=== PATIENT | female | born 1955 | race Caucasian/White ===

== ENCOUNTER → 2016-12-16 | Outpatient (CLI) | payer MEDICARE ==
[~2016-12-16] MED LIST: ALPR1TAB2 PO; ASPI-496 PO; CITA20TA5 PO; RIVA20TA PO
== END | disposition home or self-care (01) ==
LOC: CFH 08:00
PROVIDERS: ATTEND Family Medicine
DX: R91.1 Solitary pulmonary nodule (principal)
CPT/HCPCS: 71250

== ENCOUNTER → 2017-03-08 | Outpatient (CLI) | payer MEDICARE | END | disposition home or self-care (01) | LOC: CFH 13:46 | PROVIDERS: ATTEND Internal Medicine | DX: R91.1 Solitary pulmonary nodule (principal); J43.9 Emphysema, unspecified | CPT/HCPCS: 71250 ==

== ENCOUNTER 2017-06-30 13:03 | Inpatient (IN) | payer MEDICARE ==
[~2017-06-30] VITALS: Ht 165.1 cm; Wt 70.7 kg
[2017-06-30] MEDS ORDERED: methylPREDNISolone SOD SUCC 125 MG/2 ML ONE (13:21)
[2017-06-30] MEDS ORDERED: methylPREDNISolone SOD SUCC 125 MG/2 ML IVP ONE (13:30)
[2017-06-30] MEDS ORDERED: SODIUM CHLORIDE FLUSH 10ML SYR IVF ONE (13:30)
[2017-06-30] MEDS ORDERED: ALBUTEROL/IPRATROPIUM 2.5MG/0.5MG, 3 ML NPPB ONE ×2 (13:30→15:00)
[2017-06-30] MEDS ORDERED: GABA-827 PO (13:38)
[2017-06-30] MEDS ORDERED: ESTR0.6246 PO (13:38)
[2017-06-30] MEDS ORDERED: PRED-165 PO (13:40)
[2017-06-30] MEDS ORDERED: HYDR-3237 PO (13:40)
[2017-06-30] MEDS ORDERED: CEPHALEXIN 500 MG CAPSULE ONE (13:49)
[2017-06-30] MEDS ORDERED: SULFAMETH./TRIMETHOPRIM DS 800MG/160MG TABLET ONE (13:49)
[2017-06-30 13:52] LABS: HEMATOCRIT 47.9 % (34.6-47.8); HEMOGLOBIN 16.2 g/dL (11.7-16.4); WHITE BLOOD COUNT 6.8 x10^3/uL (3.4-10)
[2017-06-30 13:56] LABS: BLOOD UREA NITROGEN 5 mg/dL (7-18)
[2017-06-30 14:02] LABS: ASPARTATE AMINO TRANSFERASE 102 U/L (15-37); IS PT STATUS REG ER OR PRE ER? YES
[2017-06-30] MEDS ORDERED: ALBUTEROL/IPRATROPIUM 2.5MG/0.5MG, 3 ML ONE ×2 (14:15→15:05)
[2017-06-30] MEDS ORDERED: SODIUM CHLORIDE FLUSH 10ML SYR IVF PRN (16:30)
[2017-06-30] MEDS ORDERED: MAGNESIUM SULFATE PMX 2GM/50ML 50 ML IV ONE (16:30)
[2017-06-30] MEDS ORDERED: GUAIFENESIN/DM 200-20MG, 10ML UDC PO PRN (17:00)
[2017-06-30] MEDS ORDERED: ALPRazolam 1MG TABLET PO ONE (17:00)
[2017-06-30] MEDS ORDERED: DOCUSATE 100 MG CAPSULE PO PRN (17:00)
[2017-06-30] MEDS ORDERED: hydrALAzine 20 MG/ML, 1ML IVPush PRN (17:00)
[2017-06-30] MEDS ORDERED: ONDANSETRON 2MG/ML, 2ML IVPush PRN (17:00)
[2017-06-30] MEDS ORDERED: POLYETHYLENE GLYCOL 17 GM PACKET PO PRN (17:00)
[2017-06-30] MEDS ORDERED: BISACODYL 10 MG SUPP PR PRN (17:00)
[2017-06-30] MEDS ORDERED: ONDANSETRON ODT 4 MG PO PRN (17:00)
[2017-06-30] MEDS ORDERED: ZOLPIDEM 5MG TABLET PO PRN (17:00)
[2017-06-30 18:35] VITALS: BP 125/74
[2017-06-30] MEDS: ALBUTEROL/IPRATROPIUM 2.5MG/0.5MG, 3 ML NPPB SCH (20:00)
[2017-06-30] MEDS ORDERED: ALBUTEROL/IPRATROPIUM 2.5MG/0.5MG, 3 ML NPPB PRN (20:00)
[2017-06-30] MEDS: GABAPENTIN 300 MG CAPSULE PO SCH (21:28)
[2017-06-30] MEDS: FAMOTIDINE 20 MG TABLET PO SCH (21:28)
[2017-06-30] MEDS: HYDROcodone/APAP 5/325 TABLET PO PRN ×2 (21:30→22:16)
[2017-06-30] MEDS: methylPREDNISolone SOD SUCC 40 MG/ML IV SCH (21:35)
[2017-07-01 00:58] VITALS: BP 114/63
[2017-07-01] MEDS: HYDROcodone/APAP 5/325 TABLET PO PRN ×3 (03:57→22:26)
[2017-07-01] MEDS: methylPREDNISolone SOD SUCC 40 MG/ML IV SCH ×2 (03:58→09:22)
[2017-07-01 05:31] LABS: HEMATOCRIT 43.4 % (34.6-47.8); HEMOGLOBIN 14.4 g/dL (11.7-16.4); WHITE BLOOD COUNT 6.1 x10^3/uL (3.4-10)
[2017-07-01 05:41] LABS: BLOOD UREA NITROGEN 8 mg/dL (7-18)
[2017-07-01] MEDS: ALBUTEROL/IPRATROPIUM 2.5MG/0.5MG, 3 ML NPPB SCH ×4 (07:13→20:00)
[2017-07-01 08:00] VITALS: BP 120/69
[2017-07-01] MEDS: ESTROGENS CONJUGATED 0.625 MG TABLET PO SCH (09:00)
[2017-07-01] MEDS: ASPIRIN 81 MG TABLET EC PO SCH (09:23)
[2017-07-01] MEDS: GABAPENTIN 300 MG CAPSULE PO SCH ×3 (09:23→19:44)
[2017-07-01] MEDS: RIVAROXABAN 20 MG TABLET PO SCH (09:23)
[2017-07-01] MEDS: FAMOTIDINE 20 MG TABLET PO SCH ×2 (09:24→19:44)
[2017-07-01] MEDS: HYDROcodone/APAP 5/325 TABLET PO SCH (09:25)
[2017-07-01 13:59] VITALS: BP 109/61
[2017-07-01] MEDS: methylPREDNISolone SOD SUCC 125 MG/2 ML IV SCH (17:12)
[2017-07-01 18:41] VITALS: BP 105/62
[2017-07-02 01:43] VITALS: BP 121/77
[2017-07-02] MEDS: methylPREDNISolone SOD SUCC 125 MG/2 ML IV SCH ×3 (02:24→17:34)
[2017-07-02] MEDS: HYDROcodone/APAP 5/325 TABLET PO PRN ×5 (02:28→22:14)
[2017-07-02 06:06] LABS: HEMATOCRIT 41.6 % (34.6-47.8); HEMOGLOBIN 13.8 g/dL (11.7-16.4); WHITE BLOOD COUNT 15.4 x10^3/uL (3.4-10)
[2017-07-02 06:22] LABS: BLOOD UREA NITROGEN 10 mg/dL (7-18)
[2017-07-02] MEDS: ALBUTEROL/IPRATROPIUM 2.5MG/0.5MG, 3 ML NPPB SCH ×4 (07:00→19:10)
[2017-07-02 07:15] VITALS: BP 105/62
[2017-07-02] MEDS: RIVAROXABAN 20 MG TABLET PO SCH (08:31)
[2017-07-02] MEDS: FAMOTIDINE 20 MG TABLET PO SCH ×2 (08:31→20:20)
[2017-07-02] MEDS: GABAPENTIN 300 MG CAPSULE PO SCH ×3 (08:31→20:20)
[2017-07-02] MEDS: HYDROcodone/APAP 5/325 TABLET PO SCH (08:31)
[2017-07-02] MEDS: ESTROGENS CONJUGATED 0.625 MG TABLET PO SCH (08:31)
[2017-07-02] MEDS: ASPIRIN 81 MG TABLET EC PO SCH (08:31)
[2017-07-02] MEDS ORDERED: AZITHROMYCIN 500 MG TABLET PO ONE (11:00)
[2017-07-02 14:18] VITALS: BP 117/71
[2017-07-02 19:50] VITALS: BP 122/74
[2017-07-03] MEDS: methylPREDNISolone SOD SUCC 125 MG/2 ML IV SCH (02:11)
[2017-07-03 02:17] VITALS: BP 128/78
[2017-07-03 05:58] LABS: HEMATOCRIT 41.3 % (34.6-47.8); HEMOGLOBIN 13.5 g/dL (11.7-16.4); WHITE BLOOD COUNT 10.9 x10^3/uL (3.4-10)
[2017-07-03 06:01] LABS: BLOOD UREA NITROGEN 12 mg/dL (7-18)
[2017-07-03] MEDS: ALBUTEROL/IPRATROPIUM 2.5MG/0.5MG, 3 ML NPPB SCH ×4 (07:00→20:00)
[2017-07-03 08:01] VITALS: BP 113/43
[2017-07-03] MEDS: HYDROcodone/APAP 5/325 TABLET PO SCH (09:00)
[2017-07-03] MEDS: FAMOTIDINE 20 MG TABLET PO SCH ×2 (09:27→20:23)
[2017-07-03] MEDS: ESTROGENS CONJUGATED 0.625 MG TABLET PO SCH (09:27)
[2017-07-03] MEDS: methylPREDNISolone SOD SUCC 125 MG/2 ML IVPush SCH ×2 (09:27→20:23)
[2017-07-03] MEDS: DOXYCYCLINE 100MG TABLET PO SCH ×2 (09:27→20:23)
[2017-07-03] MEDS: ASPIRIN 81 MG TABLET EC PO SCH (09:27)
[2017-07-03] MEDS: GABAPENTIN 300 MG CAPSULE PO SCH ×3 (09:27→20:23)
[2017-07-03] MEDS: RIVAROXABAN 20 MG TABLET PO SCH (09:27)
[2017-07-03] MEDS: HYDROcodone/APAP 5/325 TABLET PO PRN ×3 (09:29→18:48)
[2017-07-03 12:40] VITALS: BP 120/68
[2017-07-03 19:30] VITALS: BP 124/71
[2017-07-04 01:18] VITALS: BP 121/69
[2017-07-04] MEDS: HYDROcodone/APAP 5/325 TABLET PO PRN (01:51)
[2017-07-04 06:45] VITALS: BP 137/79
[2017-07-04] MEDS ORDERED: DOXY100T PO (06:59)
[2017-07-04] MEDS ORDERED: METH4TAB6 PO (06:59)
[2017-07-04] MEDS ORDERED: IPRA3AMP NPPB (06:59)
[2017-07-04] MEDS: ALBUTEROL/IPRATROPIUM 2.5MG/0.5MG, 3 ML NPPB SCH (07:00)
[2017-07-04] MEDS: FAMOTIDINE 20 MG TABLET PO SCH (09:24)
[2017-07-04] MEDS: ESTROGENS CONJUGATED 0.625 MG TABLET PO SCH (09:24)
[2017-07-04] MEDS: methylPREDNISolone SOD SUCC 125 MG/2 ML IVPush SCH (09:24)
[2017-07-04] MEDS: GABAPENTIN 300 MG CAPSULE PO SCH (09:24)
[2017-07-04] MEDS: DOXYCYCLINE 100MG TABLET PO SCH (09:24)
[2017-07-04] MEDS: ASPIRIN 81 MG TABLET EC PO SCH (09:25)
[2017-07-04] MEDS: RIVAROXABAN 20 MG TABLET PO SCH (09:25)
[2017-07-04] MEDS ORDERED: FLU VACCINE PER PHARMACY IM ONE (09:30)
[2017-07-04] MEDS: HYDROcodone/APAP 5/325 TABLET PO SCH (09:32)
[2017-07-04] MEDS ORDERED: PNEUMOCOCCAL 23 VACCINE IM-VACC ONE (10:00)
[2017-07-04] MEDS ORDERED: FLU VACC QS2017-18 (36MOS+) UP/PF 0.5 ML IM-VACC ONE (11:00)
== END 2017-07-04 12:23 | disposition home or self-care (01) | DRG 189 ==
LOC: ED 16:08 → EDIP 16:09 → ED 16:36 → 4EST 18:30 → DCLOUNGE 07-04 12:18
PROVIDERS: ADMIT Internal Medicine; ATTEND Internal Medicine
DX: J96.21 Acute and chronic respiratory failure with hypoxia (principal); Z99.81 Dependence on supplemental oxygen; G62.9 Polyneuropathy, unspecified; J44.1 Chronic obstructive pulmonary disease with (acute) exacerbation; D72.829 Elevated white blood cell count, unspecified; E78.5 Hyperlipidemia, unspecified; I10 Essential (primary) hypertension; I73.9 Peripheral vascular disease, unspecified; R04.0 Epistaxis; T38.0X5A Adverse effect of glucocorticoids and synthetic analogues, initial encounter; Y92.89 Other specified places as the place of occurrence of the external cause; Z79.01 Long term (current) use of anticoagulants; Z86.73 Personal history of transient ischemic attack (TIA), and cerebral infarction without residual deficits; Z87.01 Personal history of pneumonia (recurrent); Z87.891 Personal history of nicotine dependence; Z90.89 Acquired absence of other organs; Z90.710 Acquired absence of both cervix and uterus; Z72.89 Other problems related to lifestyle; Z88.2 Allergy status to sulfonamides; Z91.041 Radiographic dye allergy status
CPT/HCPCS: 36415; 71010; 80048; 80053; 83735; 84100; 84439; 84443; 84484; 85025; 85610; 85730; 90686; 90732; 93005; 94640; 96365; 96366; 96375; J7620; J2920; J2930; J3475

== ENCOUNTER 2018-05-03 01:34 | Inpatient (IN) | payer MEDICARE ==
[~2018-05-03] VITALS: Ht 165.1 cm; Wt 71.1 kg
[~2018-05-03 01:34] MED LIST changes: -CITA20TA5 PO; +CITA20TA6 PO; +DOXY100T PO; +ESTR0.6246 PO; +GABA-827 PO; +HYDR-3237 PO; +IPRA3AMP30 NPPB; +METH4TAB6 PO; +PRED-165 PO
[2018-05-03 01:50] LABS: BASOPHILS # (AUTO) 0.09 x10^3/uL (0-0.1); BASOPHILS % (AUTO) 1 % (0-1); EOSINOPHILS # (AUTO) 0.67 x10^3/uL (0-0.4); EOSINOPHILS % (AUTO) 6 % (1-7); LYMPHOCYTES # (AUTO) 3.82 x10^3/uL (1-3.4); LYMPHOCYTES % (AUTO) 37 % (22-44); MD NO; MEAN CORPUSCULAR HEMOGLOBIN 34.7 pg (27.0-34.8); MEAN CORPUSCULAR HGB CONC 34.2 g/dL (32.4-35.8); MEAN CORPUSCULAR VOLUME 101.5 fL (80-100); MEAN PLATELET VOLUME 8.8 fL (7.4-10.4); MONOCYTES # (AUTO) 1.22 x10^3/uL (0.2-0.8); MONOCYTES % (AUTO) 12 % (2-9); NEUTROPHILS # (AUTO) 4.65 x10^3/uL (1.8-6.8); NEUTROPHILS % (AUTO) 45 % (42-75); PLATELET COUNT 195 x10^3/uL (130-400); RED BLOOD COUNT 4.22 x10^6/uL (3.82-5.3); RED CELL DISTRIBUTION WIDTH 14.2 % (9.6-15.2)
[2018-05-03 01:57] LABS: INTERNATIONAL NORMALIZED RATIO 1.23 (0.93-1.1); PROTHROMBIN TIME 12.6 Seconds (9.6-11.5)
[2018-05-03] MEDS ORDERED: SODIUM CHLORIDE 0.9% 1,000ML IVBOLUS ONE (02:00)
[2018-05-03] MEDS ORDERED: METH500T7 PO (03:01)
[2018-05-03] MEDS ORDERED: RIVA20TA PO (03:01)
[2018-05-03] MEDS ORDERED: CEPH-376 PO (03:01)
[2018-05-03] MEDS ORDERED: SODIUM CHLORIDE 0.9% 1,000 ML IV SCH (03:22)
[2018-05-03] MEDS ORDERED: ALPRazolam 1MG TABLET PO SCH (03:30)
[2018-05-03] MEDS ORDERED: POLYETHYLENE GLYCOL 17 GM PACKET PO PRN (03:30)
[2018-05-03] MEDS ORDERED: ENALAPRILAT 1.25 MG/ML, 2ML IV PRN (03:30)
[2018-05-03] MEDS ORDERED: ONDANSETRON 2MG/ML, 2ML IVPush PRN (03:30)
[2018-05-03] MEDS ORDERED: ACETAMINOPHEN 325 MG TABLET PO PRN (03:30)
[2018-05-03] MEDS ORDERED: ALBUTEROL/IPRATROPIUM 2.5MG/0.5MG, 3 ML NPPB PRN (03:30)
[2018-05-03] MEDS ORDERED: ONDANSETRON 4 MG TABLET PO PRN (03:30)
[2018-05-03] MEDS ORDERED: BUTALB/APAP/CAFFEINE 50MG/325MG/40MG PO PRN (03:30)
[2018-05-03] MEDS ORDERED: XANAX MC SCH (04:00)
[2018-05-03] MEDS ORDERED: OMEG1CAP24 PO (04:10)
[2018-05-03] MEDS ORDERED: VITA400C9 PO (04:10)
[2018-05-03] MEDS: METHOCARBAMOL 500 MG TABLET PO SCH ×2 (06:00→10:49)
[2018-05-03] MEDS ORDERED: ASPIRIN 325 MG TABLET EC PO SCH (06:00)
[2018-05-03 06:09] LABS: ALANINE AMINOTRANSFERASE 68 U/L (12-78); ANION GAP 9 mmol/L (5-15); CALCIUM 7.9 mg/dL (8.5-10.1); CHLORIDE 111 mmol/L (98-107); CHOLESTEROL, TOTAL 123 mg/dL (140-239); CREATININE 0.58 mg/dL (0.55-1.02)
[2018-05-03 06:12] LABS: ALKALINE PHOSPHATASE 67 U/L (45-117); BILIRUBIN,TOTAL 0.4 mg/dL (0.2-1.0); HDL CHOLESTEROL (DIRECT) 68 mg/dL (40-60); TOTAL PROTEIN 6.2 g/dL (6.4-8.2); TRIGLYCERIDES 69 mg/dL (50-200)
[2018-05-03 06:15] LABS: VLDL CHOLESTEROL 14 mg/dL (0-25)
[2018-05-03 06:16] LABS: CHOL/HDL RATIO 1.8; HDL CHOL % 55 % (28-40); LDL CHOLESTEROL,CALCULATED 41 mg/dL (54-169); LDL/HDL RATIO 0.6 (0.5-3.0)
[2018-05-03 07:16] VITALS: BP 98/58
[2018-05-03] MEDS ORDERED: GABAPENTIN 300 MG CAPSULE PO SCH (09:00)
[2018-05-03] MEDS ORDERED: RIVAROXABAN 20 MG TABLET PO SCH (09:00)
[2018-05-03] MEDS ORDERED: ESTROGENS CONJUGATED 0.625 MG TABLET PO SCH (09:00)
[2018-05-03 09:58] VITALS: BP 98/58
[2018-05-03] MEDS ORDERED: ATORVASTATIN 40 MG TABLET PO SCH (21:00)
== END 2018-05-03 15:10 | disposition home or self-care (01) | DRG 895 ==
LOC: ED 01:46 → EDIP 02:34 → 4EST 03:30
PROVIDERS: ADMIT Hospitalist; ATTEND Hospitalist
PROC: HZ3 Substance Abuse Treatment, Individual Counseling (ICD-10-PCS; principal; 2018-05-03)
PROC: HZ32ZZZ Individual Counseling for Substance Abuse Treatment, Cognitive-Behavioral (ICD-10-PCS; 2018-05-03)
DX: F10.129 Alcohol abuse with intoxication, unspecified (principal); G45.9 Transient cerebral ischemic attack, unspecified; E44.0 Moderate protein-calorie malnutrition; D68.69 Other thrombophilia; J44.9 Chronic obstructive pulmonary disease, unspecified; R29.810 Facial weakness; R29.700 NIHSS score 0; I10 Essential (primary) hypertension; Z68.26 Body mass index [BMI] 26.0-26.9, adult; D72.829 Elevated white blood cell count, unspecified; G62.9 Polyneuropathy, unspecified; Z87.01 Personal history of pneumonia (recurrent); E78.5 Hyperlipidemia, unspecified; F41.9 Anxiety disorder, unspecified; H70.91 Unspecified mastoiditis, right ear; I73.9 Peripheral vascular disease, unspecified; Y90.8 Blood alcohol level of 240 mg/100 ml or more; Z79.01 Long term (current) use of anticoagulants; Z87.891 Personal history of nicotine dependence; Z90.710 Acquired absence of both cervix and uterus; Z98.891 History of uterine scar from previous surgery; Z90.89 Acquired absence of other organs; Z91.041 Radiographic dye allergy status; Z88.2 Allergy status to sulfonamides
CPT/HCPCS: 36415; 70450; 70544; 70551; 80047; 80053; 80061; 80307; 82962; 85025; 85610; 85730; 93005; 93306; 93880; 96360; G0378; J7030

== ENCOUNTER → 2018-05-16 | Outpatient (CLI) | payer MEDICARE ==
[~2018-05-16] MED LIST changes: +CEPH-376 PO; +METH500T7 PO; +OMEG1CAP24 PO; +VITA400C9 PO
== END | disposition home or self-care (01) ==
LOC: CFH 10:42
PROVIDERS: ATTEND Specialist
DX: Z12.31 Encounter for screening mammogram for malignant neoplasm of breast (principal); Z13.820 Encounter for screening for osteoporosis; M81.0 Age-related osteoporosis without current pathological fracture; Z78.0 Asymptomatic menopausal state
CPT/HCPCS: 77063; 77080; 77067

== ENCOUNTER 2019-04-01 10:05 | Outpatient (CLI) | payer MEDICARE ==
[~2019-04-01 10:05] MED LIST changes: +VITA-73 PO; -VITA400C9 PO
== END 2019-04-01 23:59 | disposition home or self-care (01) ==
LOC: CFH 10:05
PROVIDERS: ATTEND Nurse Practitioner
DX: R91.1 Solitary pulmonary nodule (principal); J43.9 Emphysema, unspecified; J98.4 Other disorders of lung; Z98.82 Breast implant status
CPT/HCPCS: 71250

== ENCOUNTER 2020-10-13 14:25 | Emergency (ER) | payer MEDICARE ==
[~2020-10-13] VITALS: Ht 165.1 cm; Wt 66.5 kg
[~2020-10-13 14:25] MED LIST changes: +METH-639 PO; -METH500T7 PO
--- NOTE | 2020-10-13 16:27 | NUR ---
PT CAME IN CO LBP AND NUMBNESS IN HER LEGS THAT HAS GOTTEN WORSE OVER THE PAST FEW DAYS. PT AMBULATED IN WITH STEADY GATE UNASSISTED. MRI COMPLETE. PT RESTING IN GURNEY CONNECTED TO MONITORING EQUIPMENT
[2020-10-13 17:53] LABS: BASOPHILS % (AUTO) 1 % (0-1); EOSINOPHILS % (AUTO) 7 % (1-7); LYMPHOCYTES % (AUTO) 36 % (22-44); MEAN CORPUSCULAR HEMOGLOBIN 36.1 pg (27.0-34.8); MEAN CORPUSCULAR HGB CONC 34.1 g/dL (32.4-35.8); MEAN PLATELET VOLUME 8.9 fL (7.4-10.4); MONOCYTES % (AUTO) 11 % (2-9); NEUTROPHILS % (AUTO) 46 % (42-75); PLATELET COUNT 154 x10^3/uL (130-400); RED BLOOD COUNT 3.71 x10^6/uL (3.82-5.3); RED CELL DISTRIBUTION WIDTH 13.6 % (9.6-15.2)
--- NOTE | 2020-10-13 17:55 | NUR ---
LATE ENTRY: WARM BLANKET PROVIED. UA SENT
[2020-10-13 17:59] LABS: MD NO
[2020-10-13 18:01] LABS: ALANINE AMINOTRANSFERASE 78 U/L (12-78); ANION GAP 7 mmol/L (5-15); CALCIUM 9.2 mg/dL (8.5-10.1); CHLORIDE 106 mmol/L (98-107)
[2020-10-13 18:03] LABS: ALKALINE PHOSPHATASE 93 U/L (45-117); BILIRUBIN,TOTAL 1.8 mg/dL (0.2-1.0); CREATINE KINASE, TOTAL 48 U/L (26-192); TOTAL PROTEIN 7.6 g/dL (6.4-8.2)
[2020-10-13 18:05] LABS: MICROSCOPIC INDICATED
--- NOTE | 2020-10-13 18:37 | NUR ---
PT UP FOR RECHECK AT THIS TIME. DEJAN. DWIGHT.
--- NOTE | 2020-10-13 18:47 | NUR ---
REPORT GIVEN TO EVA LAGUNAS
--- NOTE | 2020-10-13 19:04 | NUR ---
PT TO MRI VIA [facility].
[2020-10-13 20:51] VITALS: BP 128/75
== END 2020-10-13 20:53 | disposition home or self-care (01) ==
LOC: ED 18:38
DX: M54.5 Low back pain (principal); R19.7 Diarrhea, unspecified; M79.10 Myalgia, unspecified site; I65.21 Occlusion and stenosis of right carotid artery; G89.29 Other chronic pain; Z87.891 Personal history of nicotine dependence
CPT/HCPCS: 36415; 70551; 72148; 80053; 81001; 82550; 83605; 84145; 85025; 86140; 87086; 99285

== ENCOUNTER → 2021-02-03 | Outpatient (CLI) | payer MEDICARE ==
[~2021-02-03] MED LIST changes: +VITA-66 PO; -VITA-73 PO
== END | disposition home or self-care (01) ==
LOC: CFH 09:13
PROVIDERS: ATTEND Registered Nurse
DX: J43.2 Centrilobular emphysema (principal); R91.1 Solitary pulmonary nodule; J98.11 Atelectasis
CPT/HCPCS: 71250